=== PATIENT | male | born 1980 | race Caucasian/White ===

== ENCOUNTER 2021-08-12 23:58 | Emergency (ER) | payer MEDICAID, SELFPAY ==
--- NOTE | ~2021-08-12 | CT_ITS ---
EXAMINATION: CT ABDOMEN AND PELVIS WITHOUT CONTRAST CLINICAL INFORMATION: Left flank pain with history of kidney stone COMPARISON: 04/02/2017 TECHNIQUE: Multidetector volumetric imaging was performed from the superior aspect of the liver through the pubic symphysis. Sagittal and coronal reformatted images were obtained on the technologist's workstation. This CT examination was performed using dose optimization techniques as appropriate, variously including the following: *Automated exposure control *Adjustment of mA and/or kV according to patient size (this includes techniques or standardized protocols for targeted exams where dose is matched to indication/reason for exam; i.e. extremities or head) *Use of iterative reconstruction technique DLP: 818 mGy-cm FINDINGS: LUNG BASES: The visualized lung bases are unremarkable. LIVER, GALLBLADDER, AND BILIARY TREE: Relative hypoattenuation of the hepatic parenchyma is consistent with steatosis. Focal fatty sparing is seen around the gallbladder fossa. The liver is enlarged, measuring 20.5 cm craniocaudal. Hepatic contour is normal. No focal lesions are identified. The gallbladder is unremarkable with no evidence of radiopaque gallstones, gallbladder wall thickening, or obvious pericholecystic inflammatory changes. PANCREAS: Unremarkable. SPLEEN: Measures 14.5 cm cranial caudal, enlarged. ADRENAL GLANDS: Unremarkable. KIDNEYS AND URETERS: The kidneys are normal in size, shape, and attenuation. No hydronephrosis, hydroureter, or calculi seen. No perinephric stranding. BLADDER: Unremarkable. GASTROINTESTINAL TRACT: Stomach, small bowel, and colon are normal in caliber. No bowel wall thickening or surrounding inflammatory changes. A few tiny colonic diverticula. No evidence of acute diverticulitis. Appendix is normal. No intraperitoneal free fluid or free air. ABDOMINAL WALL: No significant hernia is appreciated. LYMPH NODES: Normal. VASCULAR: Unremarkable. PELVIC VISCERA: Dystrophic calcifications in the prostate. Prostate gland is normal in size. OSSEOUS STRUCTURES: Mild multilevel degenerative disc disease. Mild sclerotic curvature. Mild osteoarthritis in the hips and SI joints. CT/CT abdomen pelvis wo con IMPRESSION: No acute intra-abdominal or intrapelvic abnormalities. No renal calculi or evidence of obstructive uropathy. Previously seen left renal calculus is no longer apparent. Hepatic steatosis. Mild hepatosplenomegaly. A few colonic diverticula. No evidence of acute diverticulitis. Fleischner guidelines were followed.
[2021-08-13 00:09] VITALS: BP 130/80; PULSE 79; O2SAT 99
--- NOTE | 2021-08-13 00:29 | ED.ABDPAIN ---
HPI - Abdominal Pain General Chief Complaint: Abdominal Pain Stated Complaint: left flank pain Time Seen by Provider: 08/13/21 00:29 Source: patient Mode of arrival: ambulatory Limitations: no limitations History of Present Illness HPI narrative: Patient history of kidney stones last stone was 5 years ago came here with sudden onset of left flank pain sharp in nature radiating to left lower abdomen few hours associated with nausea , no vomiting no fever or chills no hematuria no urinary complaint Related Data Home Medications Medication Instructions Recorded Confirmed diclofenac sodium 75 mg 1 tab PO BID 08/13/21 08/13/21 tablet,delayed release tramadol 50 mg tablet 1 tab PO TID PRN 08/13/21 08/13/21 Allergies Allergy/AdvReac Type Severity Reaction Status Date / Time No Known Allergies Allergy Unverified 02/03/20 17:30 pollen Allergy Unknown Uncoded 07/21/18 00:00 Review of Systems Review of Systems Yes all other systems are reviewed and are negative [facility] Social History Social History Alcohol intake: never Patient Tobacco Use Status: Never used Tobacco Use of substances other than those prescribed or required for medical reasons: No Advance Directives: No Advance Directives Information Provided: No Physical Exam ED Vital Signs: Vital Signs - 24 hr 08/13/21 00:36 08/13/21 00:43 Temperature 98.7 F 98.6 F Pulse Rate 75 79 Respiratory Rate 14 15 Blood Pressure 124/77 130/80 Pulse Oximetry 96 99 BMI result Body Mass Index 32.1 Appearance: Alert. Oriented X3. And moderate distress. ENT: Pharynx normal. Oral Mucosa moist Neck: Normal inspection. Neck supple. CVS: Normal heart rate and rhythm. Pulses normal. Respiratory: No respiratory distress. Equal air entry bilateral, no wheezing/rales/rhonchi Abdomen: Soft and nontender. Bowel sounds are present, no mass palpable, left CVA tenderness Skin: Skin warm and dry. Normal skin color. Normal skin turgor. Extremities: No lower extremity edema. No calf tenderness Neuro: Oriented X 3. MDM - Abdominal Pain MDM Narrative Medical decision making narrative: Patient with left renal colic UA negative for hematuria waiting for the CT scan to rule out kidney stone as patient had similar pain in the past Lab Data Attestation: I reviewed the patient's lab results. Result diagrams: 08/13/21 00:46 08/13/21 00:46 Labs: Lab Results 08/13/21 08/13/21 08/13/21 Range/Units 00:46 00:46 00:49 WBC 8.4 (4.8-10.8) X10*3/uL RBC 5.29 (4.60-5.80) X10*6/uL Hgb 15.3 (14.0-18.0) g/dl Hct 45.4 (42.0-52.0) % MCV 85.8 (80.0-98.0) fL MCH 28.9 (27.0-33.0) pg MCHC 33.7 (31.0-36.0) g/dl RDW 12.1 (11.0-16.0) % Plt Count 153 L (160-400) X10*3/uL MPV 9.7 (9.4-12.4) fL Immature Gran % (Auto) 0.4 (0.0-0.4) % Neut % (Auto) 55.6 (45-73) % Lymph % (Auto) 28.1 (20-40) % [place] % (Auto) 11.2 H (2-11) % Eos % (Auto) 4.3 H (0-4) % Baso % (Auto) 0.4 (0-2) % Lymph # (Auto) 2.4 (1.2-4.9) X10*3/uL [place] # (Auto) 0.9 (0.1-1.2) X10*3/uL Eos # (Auto) 0.4 (0.0-0.4) X10*3/uL Baso # (Auto) 0.0 (0.0-0.2) X10*3/uL Abs Immat Gran (auto) 0.03 (0.00-0.03) X10*3/uL Absolute Neuts (auto) 4.7 (2.0-8.3) x10*3/uL Absolute Nucleated RBC 0.000 (0.0-0.012) X10*3/uL Nucleated RBC % (auto) 0.0 (0.0-0.2) /100WBC Sodium 139 (135-145) mmol/L Potassium 4.1 (3.3-5.1) mmol/L Chloride 105 (96-108) mmol/L Carbon Dioxide 24 (22-29) mmol/L Anion Gap 14 (12-20) BUN 13 (9-16) mg/dL Creatinine 1.20 (0.5-1.4) mg/dL Estim Creat Clear Calc 98.5 Estimated GFR > 60 Random Glucose 114 (60-115) mg/dL Calcium 9.2 (8.4-10.2) mg/dL Total Bilirubin 0.4 (0.0-1.0) mg/dL AST 25 (5-37) U/L ALT 50 H (0-40) U/L Alkaline Phosphatase 86 (39-117) U/L Total Protein 7.4 (6.5-8.0) g/dL Albumin 4.6 (3.5-5.0) g/dL Urine Color YELLOW Urine Appearance CLEAR Urine pH 6.0 (5.0-8.0) Ur Specific Leonard <= 1.005 (1.005-1.025) Urine Protein NEG (NEG-TRACE) MG/DL Urine Glucose (UA) NEG (NEG) MG/DL Urine Ketones NEG (NEG) MG/DL Urine Blood NEG (NEG) Urine Nitrite NEG (NEG) Ur Leukocyte Esterase NEG (NEG) Discharge Plan Discharge Clinical Impression: Renal colic on left side Patient Disposition: Still a Patient Prescriptions: No Action tramadol 50 mg tablet 1 tab PO TID PRN (Reason: severe pain) 0RF diclofenac sodium 75 mg tablet,delayed release (DR/EC) 1 tab PO BID 0RF
[2021-08-13 00:36] VITALS: BP 124/77; PULSE 75; RESP 14; TEMP 37.1; O2SAT 96
[2021-08-13 00:43] VITALS: BP 130/80; PULSE 79; RESP 15; TEMP 37; O2SAT 99; BMI 32.1
[2021-08-13] MEDS: 0.9 % Sodium Chloride 1,000 ML 999 ML IV (00:51)
[2021-08-13] MEDS: ondansetron HCL 4 MG/2 ML VIAL IVPUSH (00:52)
[2021-08-13] MEDS: Ketorolac Tromethamine 30 MG/ML VIAL IVPUSH (00:52)
[2021-08-13 00:53] LABS: Basophils Percent Auto 0.4 % (0-2); Eosinophils Absolute Auto 0.4 X10*3/uL (0.0-0.4); Eosinophils Percent Auto 4.3 % (0-4); Hematocrit 45.4 % (42.0-52.0); Hemoglobin 15.3 g/dl (14.0-18.0); Imm Gran Abs Auto 0.03 X10*3/uL (0.00-0.03); Imm Gran Pct Auto 0.4 % (0.0-0.4); Lymphocytes Absolute Auto 2.4 X10*3/uL (1.2-4.9); Lymphocytes Percent Auto 28.1 % (20-40); MANUAL DIFF FLAG NO; Mean Corpuscular HGB Conc 33.7 g/dl (31.0-36.0); Mean Corpuscular Hemoglobin 28.9 pg (27.0-33.0); Mean Corpuscular Volume 85.8 fL (80.0-98.0); Mean Platelet Volume 9.7 fL (9.4-12.4); Monocytes Absolute Auto 0.9 X10*3/uL (0.1-1.2); Monocytes Percent Auto 11.2 % (2-11); Neutrophils Absolute Auto 4.7 x10*3/uL (2.0-8.3); Neutrophils Percent Auto 55.6 % (45-73); Platelet Count 153 X10*3/uL (160-400); Red Blood Count 5.29 X10*6/uL (4.60-5.80); Red Cell Distribution Width 12.1 % (11.0-16.0); White Blood Count 8.4 X10*3/uL (4.8-10.8)
[2021-08-13] MEDS: Morphine Sulfate 4 MG/ML CARTRIDGE IVPUSH (00:53)
--- NOTE | 2021-08-13 00:56 | PC.NURSE ---
Iv placed and pt medicated per Jul. Reported to DALI Puga
[2021-08-13 00:58] LABS: Appearance Urine CLEAR; Color Urine YELLOW; Glucose Urine UA NEG (NEG); Leukocyte Esterase Urine NEG (NEG); Nitrite Urine NEG (NEG); Specific Gravity - Urine <= 1.005 (1.005-1.025); Urine Blood NEG (NEG); Urine Ketones NEG (NEG); Urine Protein NEG (NEG-TRACE)
[2021-08-13 01:12] LABS: Alanine Aminotransferase 50 U/L (0-40); Albumin Level 4.6 g/dL (3.5-5.0); Alkaline Phosphatase 86 U/L (39-117); Anion Gap 14 (12-20); Aspartate Amino Transferase 25 U/L (5-37); Bilirubin Total 0.4 mg/dL (0.0-1.0); Blood Urea Nitrogen 13 mg/dL (9-16); Calcium 9.2 mg/dL (8.4-10.2); Carbon Dioxide 24 mmol/L (22-29); Chloride 105 mmol/L (96-108); Creatinine Clr Calc Pharmacy 98.5; Estimated Glomerular Filt Rate > 60; Glucose Random 114 mg/dL (60-115); Potassium 4.1 mmol/L (3.3-5.1); Sodium 139 mmol/L (135-145); Total Protein 7.4 g/dL (6.5-8.0)
== END 2021-08-13 04:01 | disposition home or self-care (01) ==
PROVIDERS: Internal Medicine; Emergency Provider Emergency Medicine Emergency Medical Services
DX: N23 Unspecified renal colic (principal); Z87.442 Personal history of urinary calculi
CPT/HCPCS: 36415; 74176; 80053; 81003; 85025; 96361; 96374; 96375; 99284; J1885; J2270; J2405

== ENCOUNTER 2021-11-28 13:03 | Outpatient (REF) | payer MEDICAID, SELFPAY ==
--- NOTE | ~2021-11-28 | XR_ITS ---
EXAMINATION: XR KNEE, LEFT CLINICAL INFORMATION: Left knee pain and swelling. COMPARISON: None TECHNIQUE: Four views of the left knee. FINDINGS: Bones and soft tissues are normal. No fracture or joint effusion. Alignment is anatomic. Joint spaces are well maintained. No abnormal soft tissue calcification. XR/XR knee LT 3V IMPRESSION: Normal left knee.
== END 2021-11-28 13:04 | disposition home or self-care (01) ==
LOC: HO.XRAY 13:03
PROVIDERS: PCP Registered Nurse Community Health; Visit Provider Registered Nurse Community Health
DX: M25.562 Pain in left knee (principal)
CPT/HCPCS: 73562

== ENCOUNTER 2022-08-03 03:06 | Emergency (ER) | payer MEDICAID, SELFPAY ==
[2022-08-03 03:07] VITALS: BP 114/74; PULSE 79; RESP 16; TEMP 36.4; O2SAT 96; BMI 32.1
[2022-08-03 04:04] LABS: COVID-19 Test Negative (Negative); IDNOW Serial# 08D9AD1C; IDNOW Serial# 9DB6401D; Influenza A Negative (Negative); Influenza B2 Negative (Negative)
--- NOTE | 2022-08-03 04:26 | ED.GENADULT ---
HPI - General Adult General Chief complaint: General Medical Stated complaint: Congested Time Seen by Provider: 08/03/22 04:24 Source: patient Mode of arrival: ambulatory Limitations: no limitations History of Present Illness HPI narrative: Patient had recurrent sinus problems complaining of nasal congestion with clear nasal discharge since early today no fever no cough no shortness of breath Related Data Home Medications Medication Instructions Recorded Confirmed diclofenac sodium 75 mg 1 tab PO BID 08/13/21 08/13/21 tablet,delayed release tramadol 50 mg tablet 1 tab PO TID PRN severe pain 08/13/21 08/13/21 Previous Rx's Medication Instructions Recorded cetirizine 10 mg tablet 10 mg PO DAILY PRN allergy 08/03/22 symptoms #20 tabs prednisone 20 mg tablet 40 mg PO DAILY #10 tabs 08/03/22 Allergies Allergy/AdvReac Type Severity Reaction Status Date / Time No Known Allergies Allergy Verified 03/18/22 13:17 pollen Allergy Unknown Unknown Uncoded 03/18/22 13:17 Review of Systems Review of Systems: Yes all other systems are reviewed and are negative PMFSH Past Medical History Medical History Acute insomnia Knee pain Liver enzyme elevation Obesity Prediabetes Renal stones Rotator cuff impingement syndrome of right shoulder Unspecified rotator cuff tear or rupture of right shoulder, not specified as traumatic Vitamin D deficiency Surgical History S/P lateral meniscectomy of right knee Social History Social History Alcohol intake: never Patient Tobacco Use Status: Never used Tobacco Smoked in Last 30 Days: No Use of substances other than those prescribed or required for medical reasons: No Advance Directives: No Advance Directives Information Provided: No Physical Exam ED Vital Signs: Vital Signs - 24 hr 08/03/22 03:07 Temperature 97.5 F Pulse Rate 79 Respiratory Rate 16 Blood Pressure 114/74 Pulse Oximetry 96 Oxygen Delivery Method Room Air BMI result Body Mass Index 32.1 Appearance: Alert. Oriented X3. No acute distress. ENT: Pharynx normal. Oral Mucosa moist inflamed nasal turbinate with clear discharge no sinus tenderness Neck: Normal inspection. Neck supple. CVS: Normal heart rate and rhythm. Pulses normal. Respiratory: No respiratory distress. Equal air entry bilateral, no wheezing/rales/rhonchi Abdomen: Soft and nontender. Bowel sounds are present, Skin: Skin warm and dry. Normal skin color. Normal skin turgor. Neuro: Oriented X 3. Medications Administered Discontinued Medications Generic Name Dose Route Start Last Admin Trade Name Freq PRN Reason Stop Dose Admin Prednisone 40 mg 08/03/22 04:26 08/03/22 04:40 Prednisone 20 Mg Tablet PO 08/03/22 04:27 40 mg ONCE ONE Administration Medical Decision Making Medical Decision Making [facility] Narrative: Patient with the serous rhinosinusitis been refusing to use nasal spray will discharge him on prednisone and cetirizine Lab Data MDM Lab Attestation statement: I reviewed the patient's lab results. Labs: Lab Results 08/03/22 08/03/22 Range/Units 03:43 03:43 COVID-19 (RUSSELL) Negative (Negative) COVID-19 Clin Com See Note Influenza Type A (KE[place]ON) Negative (Negative) Influenza Type B (KEATON) Negative (Negative) Influenza A & B Note See Note Discharge Plan Discharge Clinical Impression: Allergic rhinosinusitis Patient Disposition: Home, Self-Care Additional Instructions: Take cetirizine 1 tablet daily Prednisone as advised Follow with PCP as needed Prescriptions: New prednisone 20 mg tablet 40 mg PO DAILY Qty: 10 0RF cetirizine 10 mg tablet 10 mg PO DAILY PRN (Reason: allergy symptoms) Qty: 20 0RF No Action tramadol 50 mg tablet 1 tab PO TID PRN (Reason: severe pain) diclofenac sodium 75 mg tablet,delayed release (DR/EC) 1 tab PO BID Interventions: ED Discharge Assessment Last Done: 08/03/22 04:42 Discharge Date/Time: 08/03/22 04:43
[2022-08-03] MEDS: predniSONE 20 MG TABLET 40 MG PO (04:40)
== END 2022-08-03 04:43 | disposition home or self-care (01) ==
PROVIDERS: Emergency Provider Internal Medicine
DX: J30.9 Allergic rhinitis, unspecified (principal); Z20.822 Contact with and (suspected) exposure to COVID-19
CPT/HCPCS: 87502; 87635; 99283; 99284

== ENCOUNTER 2023-07-23 10:41 | Outpatient (REF) | payer MEDICAID, SELFPAY ==
[2023-07-23 14:58] LABS: Estimated Average Glucose 111 mg/dL; Hemoglobin A1c % 5.5 % (<6.0)
== END 2023-07-23 10:42 | disposition home or self-care (01) ==
LOC: HO.CHCLDS 10:41
PROVIDERS: Visit Provider Pediatrics
DX: R73.03 Prediabetes (principal); N40.0 Benign prostatic hyperplasia without lower urinary tract symptoms
CPT/HCPCS: 36415; 83036; 84443

== ENCOUNTER 2023-11-07 06:04 | Emergency (ER) | payer MEDICAID, SELFPAY ==
[2023-11-07 06:07] VITALS: BP 123/63; PULSE 95; RESP 16; TEMP 37.3; O2SAT 98; BMI 32.4
[2023-11-07 06:24] LABS: IDNOW Serial# 08D9AD1C; Strep A Nucleic Acid Positive (Negative)
[2023-11-07 06:58] LABS: Influenza A PCR NEGATIVE (Negative); Influenza B PCR NEGATIVE (Negative); Resp Syncy Virus RNA Qual PCR NEGATIVE (Negative); SARS COV2 PCR INHOUSE NEGATIVE (Negative)
[2023-11-07 07:09] VITALS: BP 120/80; PULSE 91; RESP 16; TEMP 36.6; O2SAT 95
--- NOTE | 2023-11-07 07:09 | ED.GENADULT ---
HPI - General Adult General Chief complaint: Headache Stated complaint: throat pain Time Seen by Provider: 11/07/23 06:48 Source: patient Mode of arrival: ambulatory Limitations: no limitations History of Present Illness ED Provider: Glenn Ovalle PA-C HPI narrative: 43-year-old male history of kidney stones, right rotator cuff tear, insomnia, liver enzyme elevation presents to the ED for sore throat for the past 2 days. Patient states his young children were sick and then he became sick. Patient denies any chest pain or shortness of breath. Patient denies any coughing. Related Data Home Medications ?Medication ?Instructions ?Recorded ?Confirmed diclofenac sodium 75 mg 1 tab PO BID 08/13/21 08/13/21 tablet,delayed release tramadol 50 mg tablet 1 tab PO TID PRN severe pain 08/13/21 08/13/21 Previous Rx's ?Medication ?Instructions ?Recorded cetirizine 10 mg tablet 10 mg PO DAILY PRN allergy 08/03/22 symptoms #20 tabs prednisone 20 mg tablet 40 mg (2 x 20 mg) PO DAILY #10 tabs 08/03/22 amoxicillin 875 mg-potassium 1 tab PO Q12H 10 days #20 tabs 11/07/23 clavulanate 125 mg tablet naproxen 500 mg tablet 500 mg PO BID PRN pain 7 days #14 11/07/23 tabs Allergies Allergy/AdvReac Type Severity Reaction Status Date / Time No Known Allergies Allergy Verified 11/07/23 06:07 pollen Allergy Unknown Unknown Uncoded 11/07/23 06:07 Review of Systems Review of Systems: sore throat and headache Yes all other systems are reviewed and are negative PMFSH Past Medical History Medical History Acute insomnia Knee pain Liver enzyme elevation Obesity Prediabetes Renal stones Rotator cuff impingement syndrome of right shoulder Unspecified rotator cuff tear or rupture of right shoulder, not specified as traumatic Vitamin D deficiency Surgical History S/P lateral meniscectomy of right knee Social History Social History Alcohol intake: former Patient Tobacco Use Status: Never used Tobacco Smoked in Last 30 Days: No Use of substances other than those prescribed or required for medical reasons: No Advance Directives: No Advance Directives Information Provided: No Physical Exam ED Vital Signs: Vital Signs - 24 hr 11/07/23 06:07 11/07/23 07:09 11/07/23 09:07 Temperature 99.1 F 98 F 98.8 F Pulse Rate 95 91 79 Respiratory Rate 16 16 16 Blood Pressure 123/63 120/80 111/74 Pulse Oximetry 98 95 98 Oxygen Delivery Method Room Air Room Air Room Air 11/07/23 09:08 Temperature 98.8 F Pulse Rate 79 Respiratory Rate 16 Blood Pressure 111/74 Pulse Oximetry 98 Oxygen Delivery Method BMI result Body Mass Index 32.4 Const General: cooperative, healthy appearing, comfortable, no acute distress, well developed, alert and awake Orientation/consciousness: patient oriented x3 HENMT Other: Negative for signs of peritonsillar abscess Head: Yes normal to inspection, Yes No palpable skull fracture present, Yes normocephalic and Yes atraumatic Throat: Yes posterior oropharynx normal, Yes uvula midline and Yes abnormal tonsil (Bilateral tonsillar exudate.) Eyes General: appearance normal, both eyes and all related structures Neck Neck: Yes normal visual inspection, Yes full ROM, Yes no lymphadenopathy, Yes no meningeal signs, Yes trachea midline, Yes supple, No anterior neck swelling and No tender Chest Chest palpation & inspection: normal inspection of the chest and normal palpation of entire chest wall Resp Effort & Inspection: normal respiratory effort and able to speak in complete sentences Auscultation: clear to auscultation bilaterally Cardio Jugular venous distension: no JVD Heart sounds: S1 normal heart sound present and S2 normal heart sound present GI Inspection: Yes normal to inspection Palpation (GI): Soft to palpation, not firm, nontender, no guarding and not rigid General: No CVA tenderness and Yes no CVA tenderness Back/Spine/Pelvis Back: no CVA tenderness, No CVA tenderness and No back tenderness Skin General skin exam: no rashes or lesions noted, elasticity normal and turgor normal Neuro General: patient oriented x3, gait normal, tone normal, moves all extremities, Normal light touch and pain sensation, no meningeal signs, no focal motor deficits, CN's II-XI intact bilaterally and normal sensation to monofilament Extrem General: Yes normal to inspection, Yes full ROM and Yes capillary refill normal Psych Appearance: grossly normal, well kempt and not disheveled Medical Decision Making Medical Decision Making [facility] Narrative: 43-year-old male presents to ED for sore throat. Patient positive for strep. Patient negative COVID influenza RSV. Not suspecting peritonsillar abscess, Refugio's angina, or retropharyngeal abscess. Patient explained worrisome signs and informed to return to the ED immediately. Patient will be discharged with antibiotics Differential Diagnosis Differential Diagnoses: The differential diagnosis associated with the presentation includes (Strep, COVID, influenza, RSV) Admission/Observation Consideration of admission/observation: Escalation of care including admission/observation considered Lab Data [facility] Lab Attestation statement: I reviewed the patient's lab results. Labs: Lab Results 11/07/23 Range/Units 06:17 Influenza Type A (PCR) NEGATIVE (Negative) Influenza Type B (PCR) NEGATIVE (Negative) RSV RNA Qual (PCR) NEGATIVE (Negative) SARS-CoV-2 RNA (RT-PCR) NEGATIVE (Negative) S. pyogenes GrpA [place] Positive A (Negative) Independent Historian Clinical information obtained from an independent historian. History obtained from or confirmed by: Other (patient) External Record Review External record reviewed: Other (antiobitic) Prescription Management I considered prescription management with: Antibiotic Discharge Plan Discharge Clinical Impression: Strep throat Patient Disposition: Home, Self-Care Instructions: Strep Throat (ED) Additional Instructions: Recommend follow-up with the primary care provider. You will be discharged with antibiotics. Return to the ED immediately for any shortness of breath, neck swelling, drooling, change in voice, intractable fever, chills, inability tolerate solid food/liquid, or any other concerning symptoms. Prescriptions: New amoxicillin-pot clavulanate 875-125 mg tablet 1 tab PO Q12H 10 Days Qty: 20 0RF naproxen 500 mg tablet 500 mg PO BID PRN (Reason: pain) 7 Days Qty: 14 0RF No Action tramadol 50 mg tablet 1 tab PO TID PRN (Reason: severe pain) diclofenac sodium 75 mg tablet,delayed release (DR/EC) 1 tab PO BID prednisone 20 mg tablet 40 mg PO DAILY Qty: 10 0RF cetirizine 10 mg tablet 10 mg PO DAILY PRN (Reason: allergy symptoms) Qty: 20 0RF Stand Alone Forms: Work/School Release Interventions: ED Discharge Assessment Last Done: 11/07/23 09:08 Discharge Date/Time: 11/07/23 09:09 Print Language: Greek
[2023-11-07 09:07] VITALS: BP 111/74; PULSE 79; RESP 16; TEMP 37.1; O2SAT 98
[2023-11-07 09:08] VITALS: BP 111/74; PULSE 79; RESP 16; TEMP 37.1; O2SAT 98
== END 2023-11-07 09:09 | disposition home or self-care (01) ==
PROVIDERS: Emergency Provider Emergency Medicine
DX: J02.0 Streptococcal pharyngitis (principal); R51.9 Headache, unspecified; Z03.818 Encounter for observation for suspected exposure to other biological agents ruled out; Z79.899 Other long term (current) drug therapy
CPT/HCPCS: 0241U; 87651; 99283; 99284

== ENCOUNTER 2024-03-04 13:12 | Outpatient (REF) | payer MEDICAID, SELFPAY ==
[2024-03-04 15:30] LABS: Microalbum/Creatinine Ratio Ur 5.3 ug/mg cr (<30)
[2024-03-04 15:36] LABS: Anion Gap 12 (12-20); Blood Urea Nitrogen 15 mg/dL (9-16); Calcium 9.5 mg/dL (8.4-10.2); Carbon Dioxide 28 mmol/L (22-29); Chloride 106 mmol/L (96-108); Cholesterol 157 mg/dL (<200); Estimated Glomerular Filt Rate > 60; Glucose Fasting 90 mg/dL (60-99); HDL Cholesterol 29 mg/dL (>40); LDL Cholesterol Calculated 107 mg/dL (<100); Potassium 3.9 mmol/L (3.3-5.1); Sodium 142 mmol/L (135-145); Triglycerides 106 mg/dL (<150)
== END 2024-03-04 13:13 | disposition home or self-care (01) ==
LOC: HO.CHCLDS 13:12
PROVIDERS: Visit Provider Pediatrics
DX: R73.03 Prediabetes (principal)
CPT/HCPCS: 36415; 80048; 80061; 82043; 82570